=== PATIENT | male | born 1975 | race Caucasian/White ===

== ENCOUNTER 2016-08-23 12:24 | Emergency (ER) | payer MEDICAID ==
[~2016-08-23] VITALS: Wt 46.0 kg
[~2016-08-23 12:24] MED LIST: POLY17PO6 PO
[2016-08-23] MEDS ORDERED: DOCU-144 PO (15:05)
[2016-08-23] MEDS ORDERED: TRAM50TA2 PO (15:24)
--- NOTE | 2016-08-23 15:24 | RADRPT ---
PROCEDURE: XR Lumbar Spine. CLINICAL INDICATION: Back pain. TECHNIQUE: AP, lateral and cone-down lateral view of the lumbar spine were obtained. COMPARISON: No prior studies are available for comparison. FINDINGS: Vertebral bodies are normal in height, density, and alignment. No fracture or subluxation is seen. The disc spaces are normal in appearance. The posterior elements are unremarkable 5 [id number] vertebrae. The soft tissues appear normal. IMPRESSION: 1. Unremarkable lumbar spine. RPTAT:AAJJ Physician Fei Date Time Electronically viewed and signed by Physician Fei on 08/23/2016 15:24 MONIQUE/
--- NOTE | 2016-08-23 15:24 | RADRPT ---
PROCEDURE: XR Abdomen. CLINICAL INDICATION: Pain TECHNIQUE: AP abdomen x-ray. COMPARISON: None. FINDINGS: The bowel gas pattern is normal. There is no evidence of free air or obstruction. There are no abnor mal calcifications overlying the urinary tracts. The osseus structures are unremarkable. IMPRESSION: 1. No free air or obstruction. RPTAT:AAJJ Bijal Medrano Physician Date Time Electronically viewed and signed by Physician Fei on 08/23/2016 15:23 MONIQUE/
[2016-08-23 15:29] VITALS: BP 122/78; PULSE 77; RESP 18; TEMP 98
--- NOTE | 2016-08-23 15:37 | ERD ---
ER Documentation Chief Complaint Date/Time DATE: 08/23/16 TIME: 15:34 Chief Complaint ABD PAIN X 3 DAYS HPI This 41-year-old male presents with abdominal distention and constipation for the last 2 days. He did take 1 dose of MiraLAX and had a bowel movement yesterday. Patient's history is significant for diverticulitis diagnosed last May 4 months ago. He was treated for constipation in the next week. Patient has been fine until the last few days. Patient denies any fevers, abdominal pain, blood, diarrhea. Patient has not seen a primary doctor or fatback trimmer as advised likely due to insurance issues. Patient also complains of some low back pain without history of trauma, bowel bladder incontinence, weakness. ROS All systems reviewed and are negative except as per history of present illness. Medications Home Meds Active Scripts Tramadol HCl (Tramadol HCl) 50 Mg Tablet, 50 MG PO Q4 Y for PAIN, #20 TAB Prov:ARIA PADRON MD 08/23/16 Docusate Sodium* (Colace*) 100 Mg Capsule, 100 MG PO BID, #60 CAP Take a glass of water daily. Prov:ARIA PADRON MD 08/23/16 Polyethylene Glycol* (Miralax*) 17 Gm Powd.pack, 17 GM PO DAILY, #7 Prov:ARIA PADRON MD 05/10/16 Allergies Allergies: Coded Allergies: No Known Allergy (Unverified , 08/23/16) PMhx/Soc Medical and Surgical Hx: pt denies Medical Hx, pt denies Surgical Hx History of Surgery: No Anesthesia Reaction: No Hx Neurological Disorder: No Hx Respiratory Disorders: No Hx Cardiac Disorders: No Hx Psychiatric Problems: No Hx Miscellaneous Medical Probl: No Hx Alcohol Use: No Hx Substance Use: No Hx Tobacco Use: No Smoking Status: Never smoker Physical Exam Vitals Vital Signs Date Time Temp Pulse Resp B/P Pulse Ox O2 Delivery O2 Flow Rate FiO2 08/23/16 15:29 98.0 77 18 122/78 99 Room Air 08/23/16 12:34 98.0 71 18 124/85 99 Physical Exam Const: [] Alert, [id number] per Head: Atraumatic Eyes: Normal Conjunctiva ENT: Normal External Ears, Nose and Mouth. Neck: Full range of motion..~ No meningismus. Resp: Clear to auscultation bilaterally Cardio: Regular rate and rhythm, no murmurs Abd: Soft, non tender, non distended. Normal bowel sounds. Some slight distention without tenderness or masses. Skin: No petechiae or rashes Back: No midline or flank tenderness. There is some mild tenderness with palpable spasm in the right L4-L5. Patient is amatory without discomfort or weakness. Ext: No cyanosis, or edema Neur: Awake and alert Psych: Normal Mood and Affect Procedures/MDM X-ray Abdomen 1V Interpreted by me: Free Air: [None] Bowel Gas: [Nonspecific] Soft Tissue: [Normal]. Impression-normal PA view of stool throughout the colon. X-ray LS-Spine 3V Interpreted by me: Bones: [No fracture] Joints: [No dislocation] Foreign body: [None]. Impression abnormal lumbar spine x-ray Patient presents with abdominal distention and history of constipation. Patient has history of diverticulitis but no current evidence to suggest acute abdomen, diverticulitis, obstruction. Patient was to follow-up with primary doctor and gastroenterology for colonoscopy and further evaluation. Patient will be treated with Colace instructions to follow-up with primary care as directed. The patient was stable with no new complaints during the ER course. Clinically, there is no current evidence to suggest meningitis, sepsis, acute abdomen, pneumonia, acute coronary syndrome, pulmonary embolism, or any other emergent condition appearing to require further evaluation or hospitalization. The patient should certainly return for any new or worsening symptoms per the aftercare instructions. They should otherwise follow-up with her primary care doctor for reevaluation this week. Departure Diagnosis: Primary Impression: Back pain Back pain location: low back pain Chronicity: acute Back pain laterality: right Sciatica presence: without sciatica Qualified Code: M54.5 - Acute right-sided low back pain without sciatica Additional Impression: Abdominal pain Abdominal location: generalized Qualified Code: R10.84 - Generalized abdominal pain Condition: Stable Patient Instructions: Back Pain (Acute Or Chronic), Constipation (Adult) Ref[facility]: [facility] Usted se lloyd hecho un examen mdico de control que le indica que no est en moisés condicin que requiera tratamiento urgente en el Departamento de Emergencia. Un estudio ms profundo y el tratamiento de briggs condicin pueden esperar sin ningn riesgo hasta que usted sea atendida/o en el consultorio de briggs mdico o moisés cl arnulfo. Es responsabilidad suya arreglar moisés goldy para el seguimiento del devang. MANEJO DE CONDICIONES NO URGENTES EN EL FUTURO 1) Si usted tiene un mdico de atencin primaria: Usted debera llamar a briggs mdico de atencin primaria antes de venir al departamento de emergencia. Despus de las horas de consultorio, briggs doctor o briggs asociado/a est disponible por telfono. El mdico o enfermero de vazquez en el servicio telefnico puede asesorarle por liborio medio para atender el problema, o devang contrario se puede programar moisés goldy. 2) Si usted no tiene un mdico de atencin primaria: Llame al mdico o clnica de referencia que aparece abajo amadeo las horas de consultorio para hacer moisés goldy para que le vean. CLINICAS: [facility] [phone] [facility] [phone] [facility] [phone] [facility] [facility] [phone] [facility] [place] [phone] [facility]. [phone] [address] Additional Instructions: Examines normal hoy. PROBABALMENTE ESTRENEMIENTO. RECOMIENDO UN COLONOSPIA. Cheque otro vez con briggs doctor primario en el proximo hall or regresa para mas o nueva simptomas. ARIA PADRON MD Aug 23, 2016 15:36
== END 2016-08-23 15:30 | disposition home or self-care (01) ==
LOC: FTE 12:24
DX: M54.5 Low back pain (principal); R10.84 Generalized abdominal pain
CPT/HCPCS: 72100; 74000; Z7502

== ENCOUNTER 2018-08-20 14:06 | Emergency (ER) | payer MEDICAID ==
[~2018-08-20] VITALS: Ht 175.3 cm; Wt 98.7 kg
[~2018-08-20 14:06] MED LIST changes: +DOCU-144 PO; +TRAM50TA2 PO
[2018-08-20 14:26] VITALS: Ht 175.3 cm; Wt 98.7 kg
[2018-08-20] MEDS ORDERED: AMOX500C2 PO (19:15)
[2018-08-20] MEDS ORDERED: D-ME473S2 PO (19:16)
[2018-08-20 19:27] VITALS: BP 144/91; PULSE 75; RESP 16
--- NOTE | 2018-08-21 03:26 | ERD ---
ER Documentation Chief Complaint Chief Complaint Complains of a cough x 1 week HPI Patient is a 43-year-old male with no past medical history presents the ER for concerns of sinus congestion and dry cough times 2 weeks. Patient states that he has had nasal congestion for the last 2 weeks. He states that symptoms are worse at night he has difficulty sleeping secondary to the congestion. Patient states he also has left-sided frontal pain. He reports yellow-green nasal congestion secretions. Patient denies any fevers or chills. Patient denies any nausea or vomiting. Patient denies any abdominal pain. Patient states he feels "palpitations" in his lower throat. Patient states he does at times feel postnasal drip. Patient denies any chest pain, shortness of breath, left upper extremity pain, LOC. Patient denies any leg swelling. Patient denies any history of DVT/PE, recent travel, recent surgeries. ROS All systems reviewed and are negative except as per history of present illness. Medications Home Meds Active Scripts Dextromethorphan Hb-Promethazine Hcl* (Promethazine DM* Syrup) 473 Ml Syrup, 5 ML PO Q6 PRN for COUGH, #4 OZ Prov:NOE GOINS PA-C 08/20/18 Amoxicillin* (Amoxicillin*) 500 Mg Cap, 500 MG PO BID for 10 Days, CAP Prov:NOE GOINS PA-C 08/20/18 Tramadol HCl (Tramadol HCl) 50 Mg Tablet, 50 MG PO Q4 PRN for PAIN, #20 TAB Prov:ARIA PADRON MD 08/23/16 Docusate Sodium* (Colace*) 100 Mg Capsule, 100 MG PO BID, #60 CAP Take a glass of water daily. Prov:ARIA PADRON MD 08/23/16 Polyethylene Glycol* (Miralax*) 17 Gm Powd.pack, 17 GM PO DAILY, #7 Prov:ARIA PADRON MD 05/10/16 Allergies Allergies: Coded Allergies: No Known Allergy (Unverified , 08/23/16) PMhx/Soc Medical and Surgical Hx: pt denies Medical Hx, pt denies Surgical Hx History of Surgery: No Anesthesia Reaction: No Hx Neurological Disorder: No Hx Respiratory Disorders: No Hx Cardiac Disorders: No Hx Psychiatric Problems: No Hx Miscellaneous Medical Probl: No Hx Alcohol Use: No Hx Substance Use: No Hx Tobacco Use: No Smoking Status: Never smoker FmHx Family History: No diabetes Physical Exam Vitals Vital Signs Date Temp Pulse Resp B/P (MAP) Pulse Ox O2 O2 Flow FiO2 Time Delivery Rate 08/20/18 98.0 75 16 144/91 96 Room Air 19:27 (108) 08/20/18 98.2 79 20 143/90 97 14:26 (107) Physical Exam GENERAL: Well-developed, well-nourished male. Appears in no acute distress. Speaking in full sentences HEAD: Normocephalic, atraumatic. No deformities or ecchymosis. EYE: Pupils equal, round, and reactive to light. EOMs intact. No conjunctival erythema. No eye discharge. ENT: External ear without any masses or tenderness. Auditory canals clear bilat erally. TM visualized bilaterally, non-erythematous, non-bulging. Left frontal sinuses tender to palpation. Nasal congestion noted on exam. Oropharynx is pink without any tonsillar erythema or exudates. No uvula deviation. No kissing tonsils. NECK: Supple. No meningismus. Normal ROM of the neck. LUNG: Clear to auscultation bilaterally. No rhonchi, wheezing, rales or coarse breath sounds. HEART: Regular rate and rhythm. No murmurs, rubs or gallops. Equal pulses noted in bilateral upper extremities. EXTREMITES: Equal pulses bilaterally. No peripheral clubbing, cyanosis or edema. No unilateral leg swelling. No pedal edema noted. NEUROLOGIC: Alert and oriented to person, place and time. Moving all four extremities. 5/5 strength in all extremities. Normal speech. Steady gait. SKIN: Normal color. Warm and dry. No rashes or lesions. Result Diagram: 08/20/18181808/20/181818 Results 24 hrs Laboratory Tests Test 08/20/18 18:19 White Blood Count 12.0 10^3/ul Red Blood Count 5.22 10^6/ul Hemoglobin 16.2 g/dl Hematocrit 47.4 % Mean Corpuscular Volume 90.8 fl Mean Corpuscular Hemoglobin 31.0 pg Mean Corpuscular Hemoglobin Concent 34.2 g/dl Red Cell Distribution Width 12.6 % Platelet Count 347 10^3/UL Mean Platelet Volume 8.2 fl Immature Granulocytes % 0.900 % Neutrophils % 50.4 % Lymphocytes % 38.9 % Monocytes % 7.8 % Eosinophils % 1.5 % Basophils % 0.5 % Nucleated Red Blood Cells % 0.0 /100WBC Immature Granulocytes # 0.110 10^3/ul Neutrophils # 6.1 10^3/ul Lymphocytes # 4.7 10^3/ul Monocytes # 0.9 10^3/ul Eosinophils # 0.2 10^3/ul Basophils # 0.1 10^3/ul Nucleated Red Blood Cells # 0.0 10^3/ul Sodium Level 141 mmol/L Potassium Level 4.5 mmol/L Chloride Level 104 mmol/L Carbon Dioxide Level 29 mmol/L Anion Gap 8 Blood Urea Nitrogen 17 mg/dl Creatinine 1.02 mg/dl Est Glomerular Filtrat Rate mL/min > 60 mL/min Glucose Level 99 mg/dl Calcium Level 9.7 mg/dl Troponin I < 0.012 ng/ml B-Type Natriuretic Peptide < 11 PG/ML Procedures/MDM ED COURSE: The patient was stable throughout ED course. I kept the patient and/or family informed of laboratory and diagnostic imaging results throughout the ED course. EKG: completed in triage Read by Dr. Luo, attending physician. EKG shows normal sinus rhythm at a rate of 89 bpm. T wave inversion noted in lead III. No ST elevations. DIAGNOSTIC IMAGING: Read by radiologist. Patient: GERMANIA ORTA : 1975 Age: 43 Sex: M MR #: [id number] DOS: 08/20/18 1658 Ordering MD: NOE GOINS PA-C Location: [facility] Room/Bed: PROCEDURE: XR Chest. CLINICAL INDICATION: Cough TECHNIQUE: Single portable view of the chest was obtained COMPARISON: None FINDINGS: The heart is enlarged. The lungs are clear. There is mild elevation of the right diaphragm. There is no pleural effusion or pneumothorax. RPTAT: AA IMPRESSION: Mild Cardiomegaly. .Paramjit Coley MD, Date Time Electronically viewed and signed by .Paramjit Coley MD, on 08/20/2018 17:46 .S/ CC: NOE GOINS PA-C [id number] MEDICAL DECISION MAKING: This is a 43-year-old male with no past medical history presents to the ER for concerns of sinus congestion dry cough times 2 weeks. Patient also reports feeling "palpitations" in his lower throat. Patient denies any chest pain or shortness of breath. Patient denied any unilateral leg swelling, history of DVT/PE, recent surgeries or recent travel. Vital signs were reviewed. Patient was afebrile. Patient was not hypoxic. Patient was not tachycardic. On ENT exam patient did have tenderness to palpation in the frontal sinus which is consistent with sinusitis. Given the patient did report "palpitations" in his throat, blood work, chest x- ray and EKG were obtained. EKG showed normal sinus rhythm. Reviewed by ED attending. No STEMI. CBC did show WBC count of 12, no evidence of anemia. BMP showed no evidence of electrolyte abnormalities, severe acidosis, alkalosis, renal failure. Troponin was negative. BNP was negative. Chest x-ray did show mild cardiomegaly. On exam, patient had no pedal edema. Low suspicion for CHF. Heart score is low. Low suspicion for acute cardiac event in the next 6 weeks. PERC score is 0. Low suspicion for PE. Patient was advised to follow-up with program director/traffic director on an outpatient basis for further management of his symptoms. Referral information provided. At this time, the patient's presentation is most consistent with sinusitis. Low suspicion for pneumonia, meningitis, otitis media, strep pharyngitis, epiglottitis, peritonsillar abscess, PE, pneumothorax, pericardial effusion, ACS, myocarditis, endocarditis, aortic dissection or sepsis. Patient was nontoxic, [id number] prior to discharge. PRESCRIPTIONS: Promethazine cough syrup, amoxicillin DISCHARGE: At this time, patient is stable for discharge and outpatient management. Supportive therapies such as OTC throat lozenges, salt water gurgles, popsicles and jello discussed. I have instructed the patient to follow-up with his/her primary care physician in 1-2 days. I have instructed the patient to promptly return to the ER for any new or worsening symptoms including increased pain, swelling, fever, nausea, vomiting, weakness or difficulty breathing. The patient and/or family expressed understanding of and agreement with this plan. All ques tions were answered. Home care instructions were provided. Disclaimer: Inadvertent spelling and grammatical errors are likely due to EHR/dictation software use and do not reflect on the overall quality of patient care. Also, please note that the electronic time recorded on this note does not necessarily reflect the actual time of the patient encounter. Departure Diagnosis: Primary Impression: Sinusitis Additional Impressions: Cough Cardiomegaly Condition: Fair Patient Instructions: Sinusitis, Abx Tx Referrals: DESIRAE GUERRA CARLOS M. MD BAGHERI,THOMAS RAY MD,PATRICIA KURTZ,SUPRIYA Evangelista MD Additional Instructions: Llame al doctor de cardiologio ANNE y jair moisés RUBIN PARA DENTRO DE 1-2 KAYE.Dgale a la secretaria que nosotros le instruimos hacer esta rubin.Avise o llame si briggs condicin se empeora antes de la rubin. Regresa aqui si peor o no mejor. NOE GOINS PA-C Aug 21, 2018 03:26
== END 2018-08-20 19:28 | disposition home or self-care (01) ==
LOC: FTE 14:06
DX: J32.9 Chronic sinusitis, unspecified (principal); I51.7 Cardiomegaly
CPT/HCPCS: 36415; 71045; 80048; 83880; 84484; 85025; 93005; Z7502

== ENCOUNTER 2019-01-05 17:22 | Emergency (ER) | payer MEDICAID ==
[~2019-01-05] VITALS: Ht 170.2 cm; Wt 92.6 kg
[~2019-01-05 17:22] MED LIST changes: +AMOX500C2 PO; +D-ME473S2 PO; +IBUP-1542 PO; +MUPI15CR9 TOP; +MUPI22OI2 TOP; +NPH10OT RIGHT EAR
[2019-01-05 17:31] VITALS: BP 139/92; PULSE 71; RESP 18; Ht 170.2 cm; Wt 92.6 kg
--- NOTE | 2019-01-05 17:37 | EN ---
Date/Time of Note Date/Time of Note DATE: 01/05/19 TIME: 17:36 ER Progress Note [id number]-[id number]-old male with right ear pain for last week. Impacted cerumen on exam. No distress. Lavage appropriate in ED 2. ARIA PADRON MD Jan 05, 2019 17:37
--- NOTE | 2019-01-05 18:10 | ERD ---
ER Documentation Chief Complaint Chief Complaint right ear pain x 8 days HPI 43-year-old male presents with right ear pain for last 8 days. He denies any cough, congestion. He also has a sore in his upper lip. Denies any bleeding or discharge. Denies any swimming or exposure to dirty water. ROS All systems reviewed and are negative except as per history of present illness. Medications Home Meds Active Scripts Mupirocin* (Bactroban*) 2% -22 Gram Oint...g., 1 APPLIC TOP BID for 7 Days, EA Prov:ARIA PADRON MD 01/05/19 Ibuprofen* (Motrin*) 600 Mg Tab, 600 MG PO Q6, #20 TAB Prov:ARIA PADRON MD 01/05/19 Neomycin/Polymyxin/Hydrocort* (Cortisporin* Otic) 10 Ml Susp, 4 DROP RIGHT EAR QID for 7 Days, EA Prov:ARIA PADRON MD 01/05/19 Mupirocin Calcium* (Mupirocin*) 2% - 15 Gram Cream..g., 1 APPLIC TOP TID for 7 Days, #1 TUB Prov:ARIA PADRON MD 01/05/19 Dextromethorphan Hb-Promethazine Hcl* (Promethazine DM* Syrup) 473 Ml Syrup, 5 ML PO Q6 PRN for COUGH, #4 OZ Prov:NOE OGINS PA-C 08/20/18 Amoxicillin* (Amoxicillin*) 500 Mg Cap, 500 MG PO BID for 10 Days, CAP Prov:NOE GOINS PA-C 08/20/18 Tramadol HCl (Tramadol HCl) 50 Mg Tablet, 50 MG PO Q4 PRN for PAIN, #20 TAB Prov:ARIA PADRON MD 08/23/16 Docusate Sodium* (Colace*) 100 Mg Capsule, 100 MG PO BID, #60 CAP Take a glass of water daily. Prov:ARIA PADRON MD 08/23/16 Polyethylene Glycol* (Miralax*) 17 Gm Powd.pack, 17 GM PO DAILY, #7 Prov:ARIA PADRON MD 05/10/16 Allergies Allergies: Coded Allergies: No Known Allergy (Unverified , 01/05/19) PMhx/Soc Medical and Surgical Hx: pt denies Medical Hx, pt denies Surgical Hx History of Surgery: No Anesthesia Reaction: No Hx Neurological Disorder: No Hx Respiratory Disorders: No Hx Cardiac Disorders: No Hx Psychiatric Problems: No Hx Miscellaneous Medical Probl: No Hx Alcohol Use: No Hx Substance Use: No Hx Tobacco Use: No Smoking Status: Never smoker FmHx Family History: No diabetes, No coronary disease, No other Physical Exam Vitals Vital Signs Date Temp Pulse Resp B/P (MAP) Pulse Ox O2 O2 Flow FiO2 Time Delivery Rate 01/05/19 98.2 71 18 139/92 97 17:31 (108) Physical Exam Const: No acute distress Head: Atraumatic Eyes: Normal Conjunctiva ENT: Normal External Ears, Nose and Mouth. Bilateral impacted cerumen. TMs normal after lavage. Vesicular lesion in the upper lip. No significant swelling or induration or fluctuance or discharge. Neck: Full range of motion. No meningismus. Resp: Clear to auscultation bilaterally Cardio: Regular rate and rhythm, no murmurs Abd: Soft, non tender, non distended. Normal bowel sounds Skin: No petechiae or rashes Back: No midline or flank tenderness Ext: No cyanosis, or edema Neur: Awake and alert Psych: Normal Mood and Affect Procedures/MDM Patient presents with signs and symptoms of mild otitis externa. Pain likely related to impacted cerumen. He also has a likely herpetic lesion upper lip. He has no signs of cellulitis, airway obstruction, ill appearance, SIRS criteria. Will treat with Cortisporin, Bactroban, ibuprofen, recommendations for primary care follow-up and return precautions. The patient was stable with no new complaints during the ER course. Clinically, there is no current evidence to suggest meningitis, sepsis, acute abdomen, pneumonia, stroke, acute coronary syndrome, pulmonary embolism, aortic dissection or any other emergent condition appearing to require further evaluation or hospitalization. Patient counseled regarding my diagnostic impression and care plan. Prior to discharge all questions answered. Pt agrees with treatment plan and understands strict return precautions. Pt is instructed to follow up with primary care provider within 24- 48 hours. Precautionary instructions provided including instructions to return to the ER if not improving or for any worsening or changing symptoms or concerns. Disclaimer: Inadvertent spelling and grammatical errors are likely due to EHR/dictation software use and do not reflect on the overall quality of patient care. Also, please note that the electronic time recorded on this note does not necessarily reflect the actual time of the patient encounter. Departure Diagnosis: Primary Impression: H/O herpes labialis Additional Impression: Right ear pain Condition: Stable Patient Instructions: Herpes Labialis, Hsv: Type I, External Ear Infection (Adult) Additional Instructions: Cheque otro vez con briggs doctor primario en el proximo hall or regresa para mas o nueva simptomas. ARIA PADRON MD Jan 05, 2019 18:10
== END 2019-01-05 18:11 | disposition home or self-care (01) ==
LOC: FTE 17:22 → E/R 18:11
DX: H61.23 Impacted cerumen, bilateral (principal); Z86.19 Personal history of other infectious and parasitic diseases
CPT/HCPCS: 99283